=== PATIENT | female | born 1940 | race Caucasian/White ===

== ENCOUNTER 2017-03-28 14:47 | Emergency (ER) | payer MEDICARE, OTHER ==
[~2017-03-28] VITALS: Ht 162.6 cm; Wt 77.7 kg
[2017-03-28 14:54] VITALS: BP 141/52; PULSE 88; RESP 18; O2SAT 96
--- NOTE | 2017-03-28 15:01 | ED.REPORT ---
HPI-General Illness Date of Service Mar 28, 2017 ED Provider: Juanjo Hensley MD Pt is a 76 year old female with a history of previous SVT who presents to the ED via EMS with concerns for resolved rapid heart rate, onset earlier today. She reports that she was walking around one hours [employer] and she felt that he heart started "pounding in her chest". She reports that she noticed a "throbbing " and when she took her pulse, she noticed that it was in the 170s. Her called the EMS and she was transported to the ED. Prior to the start of her symptoms, she was feeling at her baseline. This has happened to her in the past , she was given Adenosine, without any relief, and then was given Cardizem with relief. She wrote this medication down, and was given this immediately en route , with good relief. The entire episode lasted 20 minutes. She reports no chest pain, shortness of breath, headache, recent illness, fevers, abdominal pain or any other symptoms. Additionally, pt reports recent intermittent coughing spasms. She reports that she feels like there is phlegm in her throat, and once she coughs up the sputum , she has no further symptoms. Pt reports that she has no stem cutter that she follows up with. Nursing Notes Stated Complaint: RAPID HEART RATE RESOLVED Chief Complaint: Dysrhythmia/Cardiac Nursing Notes Reviewed: Yes Allergies: Coded Allergies: cephalexin (Verified Allergy, Unknown, "anal and urinary problems", ) General Time Seen by MD: 14:48 Chief Complaint Other (Rapid heart rate) Hx Obtained From: Patient, Spouse, EMS Arrived By: Ambulance Sudden in Onset?: Yes Onset Occurred: Just prior to arrival Symptom Duration: 16 - 30 minutes Quality: Throbbing Severity: Current: No pain currently Severity: Maximum: No pain Similar Sx Previous: Yes Past Medical History Past Medical History Hypothyroidism - on synthroid Reports: Asthma Past Surgical History Inner ear implant for deafness Smoking History Former Smoker Social History Alcohol Use: Denies alcohol use Drug Use: Denies drug use Other Social History: Good social support, Ambulatory Status Independent Review of Systems Full Review of Systems Constitutional: Denies: Chills, Fever, Malaise, Weakness - generalized Eyes: Denies: Visual loss bilateral Ears / Nose / Throat: Denies: Sore throat Respiratory: Denies: Non-productive cough, Shortness of breath, Wheezing Cardiovascular: Denies: Chest pain, Syncope GI: Denies: Abdominal pain, Constipation, Diarrhea, Nausea, Vomiting Female: Denies: Dysuria, Flank pain, Urinary frequency, Urinary urgency Musculoskeletal: Denies: Back pain, Neck pain Skin: Denies Diaphoresis, Denies Rash, Denies Swelling Neurologic: Denies: Change LOC, Dizziness, Headache, Syncope, Weakness Psychiatric: Denies: Change mental status Complete sys rev & neg: except as marked. Physical Exam Nursing note and vitals reviewed. Constitutional: Well-developed, well-nourished. Not diaphoretic. Head: Normocephalic and atraumatic. Mouth/Throat: Oropharynx is clear and moist. No oropharyngeal exudate. Eyes: EOM are normal. Pupils are equal, round, and reactive to light. Neck: Supple, no tracheal deviation. Cardiovascular: Normal rate, regular rhythm. Equal and intact distal pulses throughout. Pulmonary/Chest: Effort normal and breath sounds normal. No respiratory distress. Abdominal: Soft. No distension. There is no tenderness, rebound, or guarding. Bowel sounds present. Musculoskeletal: Range of motion grossly intact, moving all extremities. No edema or tenderness appreciated. Neurological: AOx3. Grossly nonfocal exam. Strength and sensation intact and equal to bilateral upper and lower extremities. Skin: Warm and dry, no rashes or pallor appreciated. Psychiatric: Appropriate mood and affect. Behavior appears normal. Vital Signs Vital Signs Date Time Temp Pulse Resp B/P Pulse Ox O2 Delivery O2 Flow Rate FiO2 03/28/17 19:19 82 24 117/53 95 Room Air 03/28/17 17:17 76 18 126/62 98 03/28/17 14:54 88 18 141/52 96 Room Air Initial VS: Reviewed Interpretation & Diagnostics Lab Results Interpretation Result Diagram: 03/28/17 1512 03/28/17 1512 Test 03/28/17 15:12 03/28/17 18:05 White Blood Count 8.0th/mm3 (3.8-10.1) Red Blood Count 5.34mil/mm3 (3.90-5.20) Hemoglobin 15.2g/dL (12.0-15.6) Hematocrit 45.0% (35.0-46.0) Mean Corpuscular Volume 84.3fL (81-100) Mean Corpuscular Hemoglobin 28.5pg (27.0-35.0) Mean Corpuscular Hemoglobin Concent 33.8% (32.0-37.0) Red Cell Distribution Width 13.6% (12.3-15.4) Platelet Count 237bil/L (150-400) Neutrophils (%) (Auto) 61.7% (40-74) Lymphocytes (%) (Auto) 25.0% (14-46) Monocytes (%) (Auto) 11.0% (4-12) Eosinophils (%) (Auto) 1.9% (0-5) Basophils (%) (Auto) 0.3% (0-3) Sodium Level 136mEq/L (134-144) Potassium Level 4.0mEq/L (3.5-5.2) Chloride Level 99mEq/L (97-108) Carbon Dioxide Level 21mmol/L (18-29) Blood Urea Nitrogen 11mg/dL (8-27) Creatinine 0.50mg/dL (0.57-1.00) Estimat Glomerular Filtration Rate 172mL/min (>59) Glucose Level 171mg/dL (60-99) Calcium Level 9.6mg/dL (8.5-10.1) Magnesium Level 1.9mg/dL (1.6-2.6) Total Bilirubin 0.4mg/dL (0.0-1.2) Aspartate Amino Transf (AST/SGOT) 24U/L (0-50) Alanine Aminotransferase (ALT/SGPT) 20U/L (0-32) Alkaline Phosphatase 95U/L (25-165) Total Protein 7.0g/dL (6.4-8.4) Albumin 4.4g/dL (3.4-5.0) Thyroid Stimulating Hormone (TSH) 1.510uIU/mL (0.450-4.500) Free Thyroxine 1.20ng/dL (0.82-1.77) Troponin T < 0.010ug/L (0.0-0.011) ECG Interpretation ECG Interpretation: SR - 86 No previous available for comparison Probable left atrail enlargement Low voltage, precordial leads Borderline ST elevation, anterior leads Time: 15:04 Interpreted by: ED physician X-Ray Chest Interpretation Chest Xray Interpretation: IMPRESSION: 1. No acute cardiopulmonary disease process. 2. Gaseous distention of stomach and loops of colon the visualized stomach. Please correlate with clinical data. Dictated by: Claudia Ordoñez MD, PhD on 03/28/2017 at 15:07 View: AP & lat Interpretation / Wet Read by: Interpret - Radiologist Re-Eval/Medical Decision Med Decision/Clinical Course 76 year old female presenting to the ED for evaluation of SVT noted earlier today, since resolved after being given diltiazem by EMS. We do not have the EMS rhythm strips, however patient states that she has been in this rhythm before, EMS confirmed this, and she is now asymptomatic. She is not having any chest pain either before, during, or after the event, nor shortness of breath. EKG demonstrates minimal ST elevation in the anterior leads without previous for comparison; discussed with cardiology as per below. Troponin is negative. I think the likelihood of ACS in this patient is relatively low. She does have a history of hypothyroidism, but her thyroid function here is grossly within normal limits. CBC and CMP also grossly within normal limits. Chest x-ray negative for any acute abnormality that would explain her current presentation. Given that she is otherwise fairly healthy, asymptomatic, and now has follow- up with cardiology, reasonable to discharge home with very careful return precautions, PCP and cardiology follow-up. Patient agreeable to the plan as stated, no further questions. Source of Hx: Old records, EMS Time of Eval: 19:15 Re-Evaluation/Progress Note: Pt is rechecked and informed of the consultation with Dr. Hinds, and the plan to discharge her to follow up at his clinic tomorrow. She understands and agrees. Consultation : Referral / Consult Name: Barbara Hinds MD Consulted With: Cardiology Call Returned at: 17:23 Utility Locator: Will see in office, Agrees with eval, Agrees with plan Note: Dr. Hinds reviewed the pt's EKG and agrees that it looks okay. He will see her in his clinic as an outpatient and agrees that no further evaluation is necessary here in the ED after the second troponin is resulted. Counseled Regarding: Diagnosis, Lab results, When/why to return to ED Discharge & Departure Primary Impression: SVT (supraventricular tachycardia) Disposition: Home Discharge Condition All VS Reviewed: Yes Condition: Stable Patient Instructions: Supraventricular Tachycardia (ED) Additional Instructions: Thank you for seeking care in the emergency department today. I have consulted with a stem cutter, Dr. Hinds, and he agrees to follow up with you in his clinic tomorrow. Please call his office in the morning to schedule an appointment. Please also call your primary care provider in the morning to schedule an appointment in the next several days. Return to the emergency department with any chest pain, shortness of breath, palpitations, weakness or any other symptoms that concern you. Referrals: Dagmar Barcenas MD (PCP) Barbara Hinds MD Attestation Portions of this note were transcribed by Michelle Peng. I, Dr. Hensley personally performed the history, physical exam and medical decision-making; I reviewed and confirmed the accuracy of the information in the transcribed note. Signed by: Tomeka Troncoso, 03/28/2017 19:18 copies to: Dagmar Barcenas MD; Barbara Hinds MD, William B MD Mar 28, 2017 15:01 DOUGLAS PENG Mar 28, 2017 15:13 Juanjo Hensley MD Mar 28, 2017 15:01 DOUGLAS PENG Mar 28, 2017 15:13
[2017-03-28 15:14] LABS: BASOPHILS % (AUTO) 0.3 % (0-3); EOSINOPHILS % (AUTO) 1.9 % (0-5); Mean Corpuscular Hemoglobin 28.5 pg (27.0-35.0); Mean Corpuscular Volume 84.3 fL (81-100); NEUTROPHILS % (AUTO) 61.7 % (40-74); Platelet Count 237 bil/L (150-400)
[2017-03-28 15:50] LABS: Magnesium 1.9 mg/dL (1.6-2.6)
--- NOTE | 2017-03-28 16:10 | DRSVH ---
PROCEDURE: X-RAY CHEST ONE VIEW, PORTABLE ([id number]) INDICATIONS: tachycardia TECHNIQUE: One view of the chest was acquired. COMPARISON: None. FINDINGS: Surgical changes and devices: None. Lungs and pleura: No pleural effusions or pneumothorax. Lungs are clear. Mediastinum: Mediastinal contours appear normal. Heart size is normal. Bones and chest wall: No suspicious bony lesions. Overlying soft tissues appear unremarkable. Gaseo us distention of loops of colon and stomach noted in the visualized abdomen. IMPRESSION: 1. No acute cardiopulmonary disease process. 2. Gaseous distention of stomach and loops of colon the visualized stomach. Please correlate with cli nical data. Dictated by: Claudia Ordoñez MD, PhD on 03/28/2017 at 15:07 Approved by: Claudia Ordoñez MD, PhD on 03/28/2017 at 15:08
[2017-03-28 17:17] VITALS: BP 126/62; PULSE 76; RESP 18; O2SAT 98
[2017-03-28 19:19] VITALS: BP 117/53; PULSE 82; RESP 24; O2SAT 95
== END 2017-03-28 19:29 | disposition home or self-care (01) ==
LOC: SED 14:47
DX: I47.1 Supraventricular tachycardia (principal); R05 Cough; J45.909 Unspecified asthma, uncomplicated; E03.9 Hypothyroidism, unspecified; Z87.891 Personal history of nicotine dependence; Z88.1 Allergy status to other antibiotic agents